=== PATIENT | female | born 1960 | race Two or more races ===

== ENCOUNTER 2025-04-26 08:36 | Outpatient (CLI) | payer OTHER, SELFPAY | END 2025-04-26 08:37 | disposition home or self-care (01) | LOC: NFLDREF 04-28 16:07 | PROVIDERS: Visit Provider Physician Assistant Medical | DX: Z01.818 Encounter for other preprocedural examination (principal); R73.03 Prediabetes; I10 Essential (primary) hypertension | CPT/HCPCS: 36415 ==

== ENCOUNTER 2025-08-10 09:15 | Outpatient (CLI) | payer OTHER, SELFPAY ==
--- NOTE | 2025-08-10 09:15 | CRLHL7_ITS ---
For Patients: As a result of the Century Cures Act, medical imaging exams and procedure reports are released immediately into your electronic medical record. You may view this report before your referring provider. If you have questions, please contact your health care provider. INDICATION: BILATERAL SCREENING MAMMOGRAM, ASYMPTOMATIC 65 Y/O FEMALE COMPARISON: Baseline TECHNIQUE: Digital mammogram in CC and MLO projections including computer-aided detection (CAD) and tomosynthesis. BREAST COMPOSITION: The breasts are heterogeneously dense, which may obscure small masses. FINDINGS: No suspicious findings. ASSESSMENT: BI-RADS 1 Negative RECOMMENDATION: Annual screening mammogram. A lay language report of this examination will be provided to the patient. Dictated by: Keith Evans MD @ 08/10/2025 10:30:59 (Electronically Signed)
== END 2025-08-10 09:16 | disposition home or self-care (01) ==
LOC: MAMMO 09:23
PROVIDERS: PCP Physician Assistant Medical; Visit Provider Physician Assistant Medical
DX: Z12.31 Encounter for screening mammogram for malignant neoplasm of breast (principal); R92.333 Mammographic heterogeneous density, bilateral breasts
CPT/HCPCS: 77063; 77067; T1013

== ENCOUNTER 2025-10-24 09:09 | Outpatient (CLI) | payer OTHER, SELFPAY ==
--- NOTE | 2025-10-24 10:22 | P.ANES_ITS ---
Anesthesia Charges Start Date/Time Anesthesia Start Date: 10/24/25 Anesthesia Start Time: 09:52 Stop Date/Time Anesthesia Stop Date: 10/24/25 Anesthesia Stop Time: 10:19 Coding CPT Codes CPT Codes: KATTY LWR INTST NDSC NOS - [id number] ([id number]) P2 - PATIENT W/MILD SYST DISEASE, QK - MEDICAL CODING AUDITOR 2-4 CNCRNT ANES PROC, QX - PROCESS EQUIPMENT OPERATOR SVC W/ MD MED DIRECTION
--- NOTE | 2025-10-24 10:22 | W.ANESCHARGE ---
Anesthesia Charges Start Date/Time Anesthesia Start Date: 10/24/25 Anesthesia Start Time: 09:52 Stop Date/Time Anesthesia Stop Date: 10/24/25 Anesthesia Stop Time: 10:19 Coding CPT Codes CPT Codes: KATTY LWR INTST NDSC NOS - [id number] ([id number]) P2 - PATIENT W/MILD SYST DISEASE, QK - [facility] 2-4 CNCRNT ANES PROC, QX - JOURNEYMAN SHEET METAL WORKER SVC W/ MD MED DIRECTION
--- NOTE | 2025-10-24 11:22 | P.ANES_ITS ---
Anesthesia Charges Start Date/Time Anesthesia Start Date: 10/24/25 Anesthesia Start Time: 09:52 Stop Date/Time Anesthesia Stop Date: 10/24/25 Anesthesia Stop Time: 10:19 Coding CPT Codes CPT Codes: KATTY LWR INTST NDSC NOS - [id number] ([id number]) QK - BUTTON MACHINE OPERATOR 2-4 CNCRNT KATTY PROC, QX - HORSE RACING MANAGER SVC W/ MD MED DIRECTION, P2 - PATIENT W/MILD SYST DISEASE
--- NOTE | 2025-10-24 11:22 | W.ANESCHARGE ---
Anesthesia Charges Start Date/Time Anesthesia Start Date: 10/24/25 Anesthesia Start Time: 09:52 Stop Date/Time Anesthesia Stop Date: 10/24/25 Anesthesia Stop Time: 10:19 Coding CPT Codes CPT Codes: KATTY LWR INTST NDSC NOS - [id number] ([id number]) QK - LANDSCAPE CREW LEADER 2-4 CNCRNT KATTY PROC, QX - MAKE UP MAN SVC W/ MD MED DIRECTION, P2 - PATIENT W/MILD SYST DISEASE
== END 2025-10-24 09:10 | disposition home or self-care (01) ==
LOC: OP CLINIC 09:13
PROVIDERS: PCP Physician Assistant Medical; Visit Provider Internal Medicine
DX: Z12.11 Encounter for screening for malignant neoplasm of colon (principal); D12.5 Benign neoplasm of sigmoid colon
CPT/HCPCS: 00811; 00812; 45380; T1013; J2704